=== PATIENT | female | born 1990 | race Caucasian/White ===

== ENCOUNTER → 2016-08-30 | Outpatient (CLI) | payer OTHER ==
[2016-08-30 10:34] LABS: BASO % 0 % (0-3); EOS % 1 % (0-3); HEMATOCRIT 33.8 % (36.0-47.0); HEMOGLOBIN 11.5 g/dL (12.0-15.5); LYMPH # 2.1 x10^3/uL (1.0-4.8); LYMPH % 18 % (24-48); MEAN CORPUSCULAR HEMOGLOBIN 30 pg (25-35); MEAN CORPUSCULAR HGB CONC 34 g/dL (31-37); MEAN CORPUSCULAR VOLUME 89 fL (79-100); MONO % 7 % (0-9); NEUT % 74 % (31-73); PLATELET COUNT 188 x10^3/uL (140-400); RED BLOOD COUNT 3.81 x10^6/uL (3.50-5.40); WHITE BLOOD COUNT 11.4 x10^3/uL (4.0-11.0)
== END | disposition home or self-care (01) ==
LOC: LAB 09:25
PROVIDERS: ATTEND Obstetrics & Gynecology
DX: O09.90 Supervision of high risk pregnancy, unspecified, unspecified trimester (principal)
CPT/HCPCS: 36415; 82950; 85027

== ENCOUNTER 2016-11-13 06:01 | Inpatient (IN) | payer OTHER ==
[~2016-11-13] VITALS: Ht 172.7 cm; Wt 93.0 kg
[2016-11-13] MEDS ORDERED: fentaNYL PF VIAL 100 MCG/2 ML VIAL IV PRN (06:15)
[2016-11-13] MEDS ORDERED: LIDOCAINE 1% PF 30 ML VIAL. INJ PRN (06:15)
[2016-11-13] MEDS ORDERED: ONDANSETRON PF 4 MG/2 ML VIAL. IV PRN (06:15)
[2016-11-13] MEDS ORDERED: ACETAMINOPHEN 325 MG TABLET. PO PRN ×2 (06:15→17:15)
[2016-11-13] MEDS ORDERED: MAG HYDROX/ALUMINUM HYD/SIMETH 30 ML ORAL.SUSP PO PRN ×2 (06:15→17:15)
[2016-11-13] MEDS ORDERED: IV RINGERS,LACTATED 1000ML 1,000 ML IV SCH (06:15)
[2016-11-13] MEDS ORDERED: OXYTOCIN 30 UNIT/500 ML PREMIX 500 ML IV PRN ×3 (06:15→17:15)
[2016-11-13] MEDS ORDERED: 0.9 % SODIUM CHLORIDE 10 ML DISP.SYRIN. IV PRN ×2 (06:15→17:15)
[2016-11-13] MEDS ORDERED: TERBUTALINE 1 MG/ML VIAL. SQ PRN (06:15)
[2016-11-13] MEDS ORDERED: IBUPROFEN 800 MG TABLET. PO PRN ×2 (06:15→17:15)
[2016-11-13 07:13] LABS: BILIRUBIN,URINE NEGATIVE (NEG); GLUCOSE,URINE NEGATIVE (NEG); NITRITE,URINE NEGATIVE (NEG); PROTEIN,URINE NEGATIVE (NEG-TRACE); UROBILINOGEN,URINE 0.2 mg/dL (0.2 mg/dL)
[2016-11-13 07:22] LABS: HEMATOCRIT 30.1 % (36.0-47.0); HEMOGLOBIN 9.8 g/dL (12.0-15.5); RED BLOOD COUNT 3.73 x10^6/uL (3.50-5.40); RED CELL DISTRIBUTION WIDTH 14.3 % (11.5-14.5); WHITE BLOOD COUNT 7.8 x10^3/uL (4.0-11.0)
[2016-11-13] MEDS ORDERED: OXYTOCIN in NORMAL SALINE PREMIX 30 UNIT/500 ML BAG. IV ONE (07:30)
[2016-11-13 07:31] LABS: BACTERIA,URINE MANY /HPF (0-FEW); RBC,URINE 0 /HPF (0-2); SQUAMOUS EPITHELIAL CELL,UR MANY /LPF
--- NOTE | 2016-11-13 09:50 | PDOC1 ---
OB - History Hx of Present Care: Good Care Ultrasounds: Normal mid trimester US Obstetrical Complications: None Medical Complications: None Past Family/Social History * Past Medical, Surgical, Family and Obstetric Histories reviewed from chart. Rubella: Immune RPR/VDRL: Negative GBS Status: Negative HBsAG: Negative OB - Chief Complaint & HPI Date of Admission: Date of Admission: November 13, 2016 at 06:01 Chief Complaint/History : 2 Para: 1 EGA: 39 Reason for admission: induction of labor Admission Nurse Assessment Rev: Yes Problems: OB - Admission Exam Physical Exam HEENT: Normal Heart: Regular Rate Lungs: Clear Abdomen: Gravid, Non tender, Soft Extremities: Edema Reflexes: Normal Cervical Dilatation: 2cm Effacement: 75% Station: -3 Membranes: Intact Amniotic Fluid: Clear Heart Rate: Normal Accelerations: Accelerations Present Decelerations: No decelerations Contractions on Admission: >10 Minutes Apart Intensity: Mild Text A: 39 wks IUP IOL secondary rapid delivery P; Admit for IOl pitocin. MADHU MCNAMARA Jr, MD November 13, 2016 09:50
--- NOTE | 2016-11-13 17:05 | PDOC ---
VAGINAL DELIVERY DATE DATE: 11/13/16 TIME: 17:02 : 2 Para: 2 EGA: 39 VAGINAL DELIVERY: VTX VACCUM ASSISTED: No PLACENTA: Spontaneous 03/17 SEX: Male WEIGHT Weight [4240 gm ] Nuchal Cord: Yes, Times 1 Amniotic Fluid: Clear PAIN: Natural EPISIOTOMY: No EXTENSION: No EBL 300 ml COMPLICATIONS none CONDITION pt. stable Signs of Intrauterine Infectio: None Shoulder Dystocia: No Problems: MADHU MCNAMARA Jr, MD November 13, 2016 17:05
[2016-11-13] MEDS ORDERED: DOCUSATE SODIUM 100 MG CAPSULE. PO PRN (17:15)
[2016-11-13] MEDS ORDERED: oxyCODONE/APAP 5/325 1 TAB TABLET PO PRN (17:15)
[2016-11-13] MEDS ORDERED: HYDROCORTISONE 1% TOPICAL OINTMENT 30GM TUBE. TP PRN (17:15)
[2016-11-13] MEDS ORDERED: ZOLPIDEM 5 MG TABLET. PO PRN (17:15)
[2016-11-13] MEDS ORDERED: BENZOCAINE 20% TOPICAL AEROSOL SPRAY 57GM CAN. TP PRN (17:15)
[2016-11-13] MEDS ORDERED: MMR per PROTOCOL. MC PRN (17:15)
[2016-11-13] MEDS ORDERED: PHENYLEPH/MINERAL OIL/PETROLAT RECTAL OINTMENT 28GM TUBE. RC PRN (17:15)
[2016-11-13] MEDS ORDERED: MAGNESIUM HYDROXIDE 2,400 MG/30 ML ORAL.SUSP. PO PRN (17:15)
[2016-11-13] MEDS ORDERED: diphenhydrAMINE HCL 25 MG CAPSULE PO PRN (17:15)
[2016-11-13] MEDS ORDERED: SIMETHICONE 80 MG TAB.CHEW PO PRN (17:15)
[2016-11-13 20:15] VITALS: BP 106/65
[2016-11-13 21:51] VITALS: BP 113/81
[2016-11-14 00:04] VITALS: BP 95/60
[2016-11-14 04:30] LABS: BASO % 0 % (0-3); EOS % 0 % (0-3); HEMATOCRIT 28.1 % (36.0-47.0); HEMOGLOBIN 9.6 g/dL (12.0-15.5); LYMPH # 2.5 x10^3/uL (1.0-4.8); LYMPH % 17 % (24-48); MEAN CORPUSCULAR HEMOGLOBIN 27 pg (25-35); MEAN CORPUSCULAR HGB CONC 34 g/dL (31-37); MEAN CORPUSCULAR VOLUME 79 fL (79-100); MONO % 9 % (0-9); NEUT % 73 % (31-73); PLATELET COUNT 148 x10^3/uL (140-400); RED BLOOD COUNT 3.57 x10^6/uL (3.50-5.40); RED CELL DISTRIBUTION WIDTH 14.4 % (11.5-14.5); WHITE BLOOD COUNT 14.7 x10^3/uL (4.0-11.0)
[2016-11-14 06:22] LABS: RPR REFLEX Non Reactive (Non Reactive)
[2016-11-14 06:30] VITALS: BP 98/64
[2016-11-14] MEDS: FERROUS SULFATE 325 MG TABLET. PO SCH ×2 (07:32→18:31)
--- NOTE | 2016-11-14 08:54 | PDOC ---
OB Progress Note Date of Service 11/14/16 Time of Evaluation 0850 Notes PT. feeling well. Breast feeding. Lochia minimal. Pain controlled. Lab Laboratory Tests Test 11/13/16 06:30 11/13/16 06:35 11/13/16 09:00 11/14/16 03:40 Urine Collection Type Unknown Urine Color Yellow Urine Clarity Cloudy Urine pH 6.0 Urine Specific [place] 1.010 Urine Protein Negative mg/dL (NEG-TRACE) Urine Glucose (UA) Negative mg/dL (NEG) Urine Ketones (Stick) Negative mg/dL (NEG) Urine Blood Trace (NEG) Urine Nitrite Negative (NEG) Urine Bilirubin Negative (NEG) Urine Urobilinogen Dipstick 0.2 mg/dL (0.2 mg/dL) Urine Leukocyte Esterase Large (NEG) Urine RBC 0 /HPF (0-2) Urine WBC 5-10 /HPF (0-4) Urine Squamous Epithelial Cells Many /LPF Urine Bacteria Many /HPF (0-FEW) White Blood Count 7.8 x10^3/uL (4.0-11.0) 14.7 x10^3/uL (4.0-11.0) Red Blood Count 3.73 x10^6/uL (3.50-5.40) 3.57 x10^6/uL (3.50-5.40) Hemoglobin 9.8 g/dL (12.0-15.5) 9.6 g/dL (12.0-15.5) Hematocrit 30.1 % (36.0-47.0) 28.1 % (36.0-47.0) Mean Corpuscular Volume 81 fL (79-100) 79 fL (79-100) Mean Corpuscular Hemoglobin 26 pg (25-35) 27 pg (25-35) Mean Corpuscular Hemoglobin Concent 33 g/dL (31-37) 34 g/dL (31-37) Red Cell Distribution Width 14.3 % (11.5-14.5) 14.4 % (11.5-14.5) Platelet Count 173 x10^3/uL (140-400) 148 x10^3/uL (140-400) RPR Titer Additional Testing Non reactive (Non Reactive) Hepatitis B Surface Antigen Negative (Negative) HIV-1 Antibody Non reactive (Non Reactive) Rubella IgG Antibody 1.35 index (Immune >0.99) Neutrophils (%) (Auto) 73 % (31-73) Lymphocytes (%) (Auto) 17 % (24-48) Monocytes (%) (Auto) 9 % (0-9) Eosinophils (%) (Auto) 0 % (0-3) Basophils (%) (Auto) 0 % (0-3) Neutrophils # (Auto) 10.8 x10^3uL (1.8-7.7) Lymphocytes # (Auto) 2.5 x10^3/uL (1.0-4.8) Monocytes # (Auto) 1.4 x10^3/uL (0.0-1.1) Eosinophils # (Auto) 0.1 x10^3/uL (0.0-0.7) Basophils # (Auto) 0.0 x10^3/uL (0.0-0.2) Laboratory Tests Test 11/13/16 09:00 11/14/16 03:40 Hepatitis B Surface Antigen Negative (Negative) HIV-1 Antibody Non reactive (Non Reactive) Rubella IgG Antibody 1.35 index (Immune >0.99) White Blood Count 14.7 x10^3/uL (4.0-11.0) Red Blood Count 3.57 x10^6/uL (3.50-5.40) Hemoglobin 9.6 g/dL (12.0-15.5) Hematocrit 28.1 % (36.0-47.0) Mean Corpuscular Volume 79 fL (79-100) Mean Corpuscular Hemoglobin 27 pg (25-35) Mean Corpuscular Hemoglobin Concent 34 g/dL (31-37) Red Cell Distribution Width 14.4 % (11.5-14.5) Platelet Count 148 x10^3/uL (140-400) Neutrophils (%) (Auto) 73 % (31-73) Lymphocytes (%) (Auto) 17 % (24-48) Monocytes (%) (Auto) 9 % (0-9) Eosinophils (%) (Auto) 0 % (0-3) Basophils (%) (Auto) 0 % (0-3) Neutrophils # (Auto) 10.8 x10^3uL (1.8-7.7) Lymphocytes # (Auto) 2.5 x10^3/uL (1.0-4.8) Monocytes # (Auto) 1.4 x10^3/uL (0.0-1.1) Eosinophils # (Auto) 0.1 x10^3/uL (0.0-0.7) Basophils # (Auto) 0.0 x10^3/uL (0.0-0.2) Medications Current Medications Sodium Chloride (Normal Saline Flush) 3 ml QSHIFT PRN IV AFTER MEDS AND BLOOD DRAWS; Start 11/13/16 at 06:15 Ringer's Solution 1,000 ml @ 125 mls/hr Q8H IV Last administered on 11/13/16 06:41; Start 11/13/16 at 06:15 Fentanyl Citrate (Fentanyl 2ml Vial) 100 mcg PRN Q30MIN PRN IV Severe pain Last administered on 11/13/16 14:33; Start 11/13/16 at 06:15 Acetaminophen (Tylenol) 650 mg PRN Q6HRS PRN PO MILD PAIN / TEMP; Start at 06:15 Ondansetron HCl (Zofran) 4 mg PRN Q4HRS PRN IV NAUSEA/VOMITING; Start 11/13/16 at 06:15 Al Hydroxide/Mg Hydroxide (Mylanta Plus Xs) 30 ml PRN Q4HRS PRN PO HEARTBURN / GAS; Start 11/13/16 at 06:15 Terbutaline Sulfate (Brethine) 0.25 mg 1X PRN PRN SQ SEE COMMENTS; Start at 06:15; Stop 11/14/16 at 06:14; Status DC Lidocaine HCl 30 ml 1X PRN PRN INJ SEE COMMENTS; Start 11/13/16 at 06:15; Stop 11/15/16 at 06:14 Oxytocin/Sodium Chloride 500 ml @ 0 mls/hr CONT PRN IV SEE I/O RECORD; Start at 06:15 Oxytocin/Sodium Chloride 500 ml @ 0 mls/hr CONT PRN PRN IV Post delivery bleeding; Start 11/13/16 at 06:15 Ibuprofen (Motrin) 800 mg PRN Q6HRS PRN PO PAIN; Start 11/13/16 at 06:15 Oxytocin/Sodium Chloride (Oxytocin Premix Infusion) 30 unit STK-MED ONCE IV ; Start 11/13/16 at 07:30; Stop 11/13/16 at 12:05; Status DC Sodium Chloride (Normal Saline Flush) 10 ml QSHIFT PRN IV AFTER MEDS AND BLOOD DRAWS; Start 11/13/16 at 17:15 Oxytocin/Sodium Chloride 500 ml @ 62.5 mls/hr CONT PRN IV SEE I/O RECORD; Start 11/13/16 at 17:15; Stop 11/14/16 at 01:14; Status DC Acetaminophen (Tylenol) 650 mg PRN Q6HRS PRN PO MILD PAIN / TEMP; Start at 17:15 Ibuprofen (Motrin) 800 mg PRN Q8HRS PRN PO INFLAMMATION/PAIN PREVENTION; Start 11/13/16 at 17:15 Docusate Sodium (Colace) 100 mg PRN BID PRN PO CONSTIPATION Last administered on 11/14/16 07:32; Start 11/13/16 at 17:15 Magnesium Hydroxide (Milk Of Magnesia) 2,400 mg PRN DAILY PRN PO CONSTIPATION; Start 11/13/16 at 17:15 Al Hydroxide/Mg Hydroxide (Mylanta Plus Xs) 30 ml PRN Q4HRS PRN PO HEARTBURN / GAS; Start 11/13/16 at 17:15 Simethicone (Gas-X) 80 mg PRN AFTMEALHC PRN PO GAS / BLOATING; Start 11/13/16 at 17:15 Diphenhydramine HCl (Benadryl) 25 mg PRN Q6HRS PRN PO ITCHING; Start 11/13/16 at 17:15 Benzocaine (Americaine) 1 spray PRN QID PRN TP TOPICAL PAIN Last administered on 11/13/16 20:06; Start 11/13/16 at 17:15 Phenyleph/Shark Oil/Min Oil/Petrol (Preparation H) 1 jessica PRN QID PRN RC RECTAL PAIN; Start 11/13/16 at 17:15 Hydrocortisone (Cortaid) 1 jessica PRN QID PRN TP PERINEAL PAIN; Start 11/13/16 at 17:15 Ferrous Sulfate (Feosol) 325 mg BIDWMEALS PO Last administered on 11/14/16 07: 32; Start 11/14/16 at 08:00 Zolpidem Tartrate (Ambien) 5 mg PRN QHS PRN PO INSOMNIA, MAY REPEAT X1; Start 11/13/16 at 17:15 Info (Do NOT chart on this placeholder) 1 ea 1X PRN PRN MC SEE COMMENTS; Start 11/13/16 at 17:15 Info (Do NOT chart on this placeholder) 1 ea 1X PRN PRN MC SEE COMMENTS; Start 11/13/16 at 17:15 Oxycodone/ Acetaminophen (Percocet 5/325) 2 tab PRN Q4HRS PRN PO MODERATE PAIN , SEVERE PAIN; Start 11/13/16 at 17:15 Exam Abd: soft, non tender, fundus firm Assessment PPD#1 s/p Plan of Care: Continue current Tx, Mgmt MADHU MCNAMARA Jr, MD November 14, 2016 08:54
--- NOTE | 2016-11-14 08:57 | DISCH ---
DISCHARGE INSTRUCTIONS Condition on Discharge Condition on Discharge: Stable Activity After Discharge Activity Instructions for Disc: Activity as tolerated Lifting Instructions after Dis: No heavy lifting Driving Instructions after Dis: Do not drive today Diet after Discharge Diet after Discharge: Regular Contacting the DRRocco after DC Call your doctor for: Concerns you may have Follow-Up Follow up with: Dr. Shah in 6 weeks. MADHU SHAH Jr, MD November 14, 2016 08:57
[2016-11-14 11:31] VITALS: BP 116/82
[2016-11-14 14:30] VITALS: BP 106/75
[2016-11-14 18:15] VITALS: BP 124/86
[2016-11-14 22:48] VITALS: BP 115/84
[2016-11-15 06:20] VITALS: BP 112/70
[2016-11-15] MEDS: FERROUS SULFATE 325 MG TABLET. PO SCH (08:37)
[2016-11-15 10:00] VITALS: BP 114/78
== END 2016-11-15 10:25 | disposition home or self-care (01) | DRG 775 ==
LOC: 3 SO LND 06:01 → 3 NORTH 20:15
PROVIDERS: ADMIT Obstetrics & Gynecology; ATTEND Obstetrics & Gynecology
PROC: 10E0XZZ Delivery of Products of Conception, External Approach (ICD-10-PCS; principal; 2016-11-13)
DX: O69.81X0 Labor and delivery complicated by cord around neck, without compression, not applicable or unspecified (principal); Z37.0 Single live birth; Z3A.39 39 weeks gestation of pregnancy
CPT/HCPCS: 36415; 81001; 85027; 86593; 86703; 86762; 86850; 86900; 86901; 87086; 87340; 87341; J2590; J3010; J7120

== ENCOUNTER → 2017-04-05 | Day surgery (SDC) | payer OTHER ==
[~2017-04-05] MED LIST: ACET325T9 PO; AZIT250T6 PO; GUAI-108 PO; LIDOCAINE 2% PF Vial for OR 5 ML VIAL. ONE; OXYC-323 PO; PROAIR HFA8.5 GM INH; PROPOFOL 40 ML IV ONE; ePHEDrine PF IN SALINE 50 MG/5 ML DISP.SYRIN IV ONE
[2017-04-05 09:05] VITALS: BP 104/60
[2017-04-05 09:18] LABS: NEG OBC UR NEG; POS OBC UR POS
== END | disposition home or self-care (01) ==
LOC: ENDOS 07:37
PROVIDERS: ATTEND Surgery
DX: K92.1 Melena (principal); Z90.49 Acquired absence of other specified parts of digestive tract; Z87.39 Personal history of other diseases of the musculoskeletal system and connective tissue; Z72.0 Tobacco use
CPT/HCPCS: 45378; 81025; J2704; J2001

== ENCOUNTER 2017-04-24 10:11 | Emergency (ER) | payer OTHER ==
[~2017-04-24 10:11] MED LIST changes: -ACET325T9 PO; -AZIT250T6 PO; -GUAI-108 PO; -LIDOCAINE 2% PF Vial for OR 5 ML VIAL. ONE; -PROAIR HFA8.5 GM INH; -PROPOFOL 40 ML IV ONE; -ePHEDrine PF IN SALINE 50 MG/5 ML DISP.SYRIN IV ONE
[2017-04-24 10:19] VITALS: BP 117/63
[2017-04-24] MEDS ORDERED: PROAIR HFA8.5 GM INH (10:48)
[2017-04-24] MEDS ORDERED: AZIT250T6 PO (10:48)
[2017-04-24] MEDS ORDERED: ACET325T9 PO (10:48)
[2017-04-24] MEDS ORDERED: GUAI-108 PO (10:48)
--- NOTE | 2017-04-24 10:49 | PHYS DOC ---
Past Medical History Past Medical History: No Pertinent History Past Surgical History: Appendectomy, Cholecystectomy, Other Additional Past Surgical Histo: left wrist Alcohol Use: None Drug Use: None Adult General Chief Complaint Chief Complaint: COUGH HPI HPI Impression is a pleasant otherwise healthy 26-year-old female who is a smoker presents with a cough and laryngitis for the last 1 week. She has had a nonproductive cough with rhinorrhea mild sore throat with laryngitis with cough. She is used [id number] Tylenol and DayQuil with minimal improvement of her symptoms. Family has had similar symptoms at home. She denies any difficulty swallowing or sore throat at this time only change in voice. Patient denies any neck stiffness, fevers, chills, difficulty tolerate food or fluids. Patient denies any anterior neck swelling, headache or other symptoms. Patient is sent also to use other [id number] remedies without much improvement. She does still continue to smoke daily. Pain only occurs with cough. Review of Systems Review of Systems Constitutional: Denies fever or chills [] Eyes: Denies change in visual acuity, redness, or eye pain [] HENT: She definitely complains of nasal congestion with no sore throat just change in voice. Respiratory: sHe has a cough without shortness of breath Cardiovascular: No additional information not addressed in HPI [] GI: Denies abdominal pain, nausea, vomiting, bloody stools or diarrhea [] : Denies dysuria or hematuria [] Musculoskeletal: Denies back pain or joint pain [] Integument: Denies rash or skin lesions [] Neurologic: Denies headache, focal weakness or sensory changes [] Allergies Allergies Allergies Coded Allergies Type Severity Reaction Last Updated Verified No Known Drug Allergies 04/05/17 No Physical Exam Physical Exam Vital signs recorded on the chart patient noted to be mildly tachycardic. This may be associated with medication she took [id number] to treat her cold symptoms which included some Benadryl and Sudafed. Constitutional: Well developed, well nourished, no acute distress, non-toxic appearance. 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 [] Eyes: PERRLA, EOMI, conjunctiva normal, no discharge. [] Neck: Normal range of motion, no tenderness, supple, no stridor. [] Cardiovascular:Heart rate regular rhythm, no murmur [] Lungs & Thorax: Slight wheeze with cough otherwise clear breath sounds. Skin: Warm, dry, no erythema, no rash. [] Neurologic: Alert and oriented X 3, Psychologic: Affect normal, judgement normal, mood normal. [] Current Patient Data Vital Signs Vital Signs Date Time Temp Pulse Resp B/P (MAP) Pulse Ox O2 Delivery O2 Flow Rate FiO2 04/24/17 10:19 98.1 108 18 97 Room Air 98.1 EKG EKG [] Radiology/Procedures Radiology/Procedures [] Course & Med Decision Making Course & Med Decision Making Pertinent Labs and Imaging studies reviewed. (See chart for details) she presents with laryngitis and cold-like symptoms. She also has a slight wheeze with coughing as she is a smoker. I will treat her empirically with antibiotics for laryngitis and bronchitis provide her a pro-air inhaler and a mucolytic for her symptoms. Encouraged to follow-up with her primary care doctor return for any increasing sore throat, fevers with continued change in voice or she has any question concerns. At this point doubt presence of peritonsillar abscess or retropharyngeal abscess. Ugo angina or cellulitis of the oropharynx.[] Dragon Disclaimer Dragon Disclaimer This electronic medical record was generated, in whole or in part, using a voice recognition dictation system. Departure Departure Impression: Primary Impression: Laryngitis Additional Impression: Bronchitis Disposition: 01 HOME, SELF-CARE Condition: IMPROVED Referrals: ENTO KENYON MD (PCP) Patient Instructions: Acute Bronchitis, Laryngitis Additional Instructions: My discharge plan Follow up: In addition patient is asked to followup with their primary doctor, within a week for followup examination and to address patient's ongoing medical conditions. Patient is advised that in the Emergency Department primary complaints are addressed and only in light of known signs and symptoms. Patient should return immediately to the emergency department if new signs and symptoms develop or patient's condition worsens in any way. At time of discharge patient was in stable condition and had verbalized understanding of the discharge instructions. Scripts Acetaminophen (TYLENOL) 325 Mg Tablet 1-2 TAB PO QID, #60 TAB 2 Refills Prov: BROVONT,ADRIANE A MD 04/24/17 Albuterol Sulfate (PROAIR HFA INHALER) 8.5 Gm Hfa.aer.ad 1 PUFF INH PRN Q6HRS Y for SHORTNESS OF BREATH for 5 Days, INHALER 0 Refills Prov: ADRIANE TOLBERT MD 04/24/17 Guaifenesin/Dextromethorphan (MUCINEX DM ER 600-30 MG TABLET) 1 Each Tab.er.12h 1 TAB PO PRN Q12HRS, #20 TAB Prov: ADRIANE TOLBERT MD 04/24/17 Azithromycin (AZITHROMYCIN TABLET) 250 Mg Tablet 250 MG PO DAILY Y for infection for 5 Days, #6 TAB 0 Refills Please take 2 tablets on day 1 then 1 tablet days 2 through 5. Prov: ADRIANE TOLBERT MD 04/24/17 Problem Qualifiers ADRIANE TOLBERT MD Apr 24, 2017 10:49
== END 2017-04-24 10:58 | disposition home or self-care (01) ==
LOC: ER 10:11
DX: J04.0 Acute laryngitis (principal); J40 Bronchitis, not specified as acute or chronic; F17.200 Nicotine dependence, unspecified, uncomplicated
CPT/HCPCS: 99283

== ENCOUNTER 2017-07-12 12:07 | Emergency (ER) | payer OTHER | END 2017-07-12 13:39 | disposition home or self-care (01) | LOC: ER 12:07 | DX: Z04.1 Encounter for examination and observation following transport accident (principal); Z90.49 Acquired absence of other specified parts of digestive tract; V43.62XA Car passenger injured in collision with other type car in traffic accident, initial encounter; Y93.89 Activity, other specified; Y92.410 Unspecified street and highway as the place of occurrence of the external cause; Y99.8 Other external cause status | CPT/HCPCS: 99283 ==